=== PATIENT | female | born 1965 | race Caucasian/White ===

== ENCOUNTER 2016-07-10 08:36 | Day surgery (SDC) | payer BC, OTHER ==
[~2016-07-10] VITALS: Ht 168.9 cm; Wt 72.0 kg
[2016-07-10] MEDS ORDERED: LACTATED RINGERS 1,000 ML IV SCH (09:05)
[2016-07-10 09:30] VITALS: BP 165/116
[2016-07-10] MEDS ORDERED: NONE PER PT (09:39)
[2016-07-10] MEDS ORDERED: HEPARIN 1,000 UNITS/ML, 10ML ONE (09:43)
[2016-07-10] MEDS ORDERED: BUPIVACAINE/PF-EPI 0.5% 1:200K ONE (09:44)
[2016-07-10] MEDS ORDERED: MIDAZOLAM 1 MG/ML, 2ML ONE (09:55)
[2016-07-10] MEDS ORDERED: FENTANYL PF 100 MCG/2ML ONE ×3 (09:55→11:31)
[2016-07-10] MEDS ORDERED: ALBUTEROL SULFATE 2.5 MG/3 ML NPPB PRN (10:00)
[2016-07-10] MEDS ORDERED: MEPERIDINE/PF 25MG/0.5ML IVPush PRN ×2 (10:00→10:30)
[2016-07-10] MEDS ORDERED: FENTANYL PF 100 MCG/2ML IV PRN ×2 (10:00→10:30)
[2016-07-10] MEDS ORDERED: hydrALAzine 20 MG/ML, 1ML IV PRN ×2 (10:00→10:30)
[2016-07-10] MEDS ORDERED: LABETALOL 5MG/ML, 20ML IV PRN ×2 (10:00→10:30)
[2016-07-10] MEDS ORDERED: PROMETHAZINE 25 MG/ML, 1ML IV PRN ×2 (10:00→10:30)
[2016-07-10] MEDS ORDERED: ONDANSETRON 2MG/ML, 2ML IVPush PRN ×2 (10:00→10:30)
[2016-07-10] MEDS ORDERED: METOPROLOL 1 MG/ML, 5ML IV PRN (10:00)
[2016-07-10] MEDS ORDERED: EPHEDRINE 50 MG/ML, 1ML IVPush PRN (10:00)
[2016-07-10] MEDS ORDERED: OXYcodone 5 MG/5 ML ORAL.SOL UDC PO PRN ×2 (10:00→10:30)
[2016-07-10] MEDS ORDERED: ACETAMINOPHEN 325 MG TABLET PO PRN (10:00)
[2016-07-10] MEDS ORDERED: DEXAMETHASONE 4 MG/ML, 1ML ONE (10:24)
[2016-07-10] MEDS ORDERED: NEOSTIGMINE 1 MG/ML, 10ML ONE (10:24)
[2016-07-10] MEDS ORDERED: CEFAZOLIN 1,000 MG ONE (10:24)
[2016-07-10] MEDS ORDERED: LIDOCAINE 1%, 20ML ONE (10:24)
[2016-07-10] MEDS ORDERED: ONDANSETRON 2MG/ML, 2ML ONE (10:24)
[2016-07-10] MEDS ORDERED: PROPOFOL 10 MG/ML, 20ML ONE (10:24)
[2016-07-10] MEDS ORDERED: MIDAZOLAM 1 MG/ML, 2ML IV PRN (10:30)
[2016-07-10] MEDS ORDERED: HYDROmorphone 1 MG/ML, 1ML IV PRN (10:30)
[2016-07-10] MEDS ORDERED: OXYcodone 5 MG/5 ML ORAL.SOL UDC ONE (11:31)
[2016-07-10] MEDS ORDERED: ACETAMINOPHEN 325 MG TABLET ONE (11:31)
== END 2016-07-10 13:25 | disposition home or self-care (01) ==
LOC: OUT 08:36
PROVIDERS: ATTEND Surgery
DX: C50.411 Malignant neoplasm of upper-outer quadrant of right female breast (principal); Z72.89 Other problems related to lifestyle
CPT/HCPCS: 36561; 77001; C1788; J0690; J1100; J1644; J2405; J2704; J2710; J3010; J3490; J7120; J2250

== ENCOUNTER 2019-10-29 09:17 | Outpatient (CLI) | payer BC, OTHER ==
[~2019-10-29 09:17] MED LIST: NONE PER PT
[2019-10-29 10:09] LABS: BASOPHILS # (AUTO) 0.04 x10^3/uL (0-0.1); BASOPHILS % (AUTO) 1 % (0-1); EOSINOPHILS # (AUTO) 0.17 x10^3/uL (0-0.4); EOSINOPHILS % (AUTO) 4 % (1-7); LYMPHOCYTES % (AUTO) 41 % (22-44); MD NO; MEAN CORPUSCULAR HEMOGLOBIN 30.6 pg (27.0-34.8); MEAN CORPUSCULAR HGB CONC 33.1 g/dL (32.4-35.8); MEAN PLATELET VOLUME 8.6 fL (7.4-10.4); MONOCYTES # (AUTO) 0.52 x10^3/uL (0.2-0.8); MONOCYTES % (AUTO) 12 % (2-9); NEUTROPHILS # (AUTO) 1.88 x10^3/uL (1.8-6.8); NEUTROPHILS % (AUTO) 43 % (42-75); PLATELET COUNT 235 x10^3/uL (130-400); RED BLOOD COUNT 4.64 x10^6/uL (3.82-5.3); RED CELL DISTRIBUTION WIDTH 13.3 % (9.6-15.2)
[2019-10-29 10:22] LABS: ALBUMIN 4.3 g/dL (3.4-5.0); ANION GAP 3 mmol/L (5-15); CALCIUM 9.4 mg/dL (8.5-10.1); CHLORIDE 110 mmol/L (98-107)
[2019-10-29 10:25] LABS: ALANINE AMINOTRANSFERASE 30 U/L (12-78); ALKALINE PHOSPHATASE 75 U/L (45-117); BILIRUBIN,TOTAL 0.5 mg/dL (0.2-1.0); CREATININE 0.84 mg/dL (0.55-1.02); TOTAL PROTEIN 7.9 g/dL (6.4-8.2)
== END 2019-10-29 23:59 | disposition home or self-care (01) ==
LOC: STAR 09:17
PROVIDERS: ATTEND Specialist
DX: Z01.818 Encounter for other preprocedural examination (principal); C50.912 Malignant neoplasm of unspecified site of left female breast; C50.911 Malignant neoplasm of unspecified site of right female breast
CPT/HCPCS: 36415; 80053; 85025; 87635

== ENCOUNTER 2019-11-03 13:26 | Day surgery (SDC) | payer BC ==
[~2019-11-03] VITALS: Ht 167.6 cm; Wt 66.1 kg
[2019-11-03] MEDS ORDERED: LACTATED RINGERS 1,000 ML IV SCH ×2 (13:38→19:00)
[2019-11-03 13:42] VITALS: BP 155/106
[2019-11-03] MEDS ORDERED: CHLORHEXIDINE 15 ML UDC ONE (13:51)
[2019-11-03] MEDS ORDERED: ACETAMINOPHEN 500 MG TABLET ONE (13:52)
[2019-11-03] MEDS ORDERED: SCOPOLAMINE 1MG PATCH TD ONE (13:52)
[2019-11-03] MEDS ORDERED: GABAPENTIN 300 MG CAPSULE ONE (13:52)
[2019-11-03] MEDS ORDERED: GABAPENTIN 300 MG CAPSULE PO ONE (14:00)
[2019-11-03] MEDS ORDERED: SCOPOLAMINE 1MG PATCH TD SCH (14:00)
[2019-11-03] MEDS ORDERED: ACETAMINOPHEN 500 MG TABLET PO ONE (14:00)
[2019-11-03] MEDS ORDERED: CHLORHEXIDINE 15 ML UDC MM ONE (14:00)
[2019-11-03] MEDS ORDERED: ONDANSETRON 2MG/ML, 2ML ONE (14:14)
[2019-11-03] MEDS ORDERED: MIDAZOLAM 1 MG/ML, 2ML ONE (14:14)
[2019-11-03] MEDS ORDERED: GLYCOPYRROLATE 0.2MG/1ML, 5ML ONE (14:14)
[2019-11-03] MEDS ORDERED: NEOSTIGMINE 1 MG/ML, 10ML ONE (14:14)
[2019-11-03] MEDS ORDERED: PROPOFOL 10 MG/ML, 20ML ONE (14:14)
[2019-11-03] MEDS ORDERED: DEXAMETHASONE 4 MG/ML, 1ML ONE (14:14)
[2019-11-03] MEDS ORDERED: FENTANYL PF 250 MCG/5ML ONE (14:14)
[2019-11-03] MEDS ORDERED: ROCURONIUM 10MG/ML,5ML ONE (14:14)
[2019-11-03] MEDS ORDERED: CEFAZOLIN 1,000 MG ONE (14:14)
[2019-11-03] MEDS ORDERED: BUPIVACAINE/EPI 0.5% 1:200K ONE (14:46)
[2019-11-03] MEDS ORDERED: BACITRACIN 50,000 UNIT ONE (14:46)
[2019-11-03] MEDS ORDERED: LABETALOL 5MG/ML, 20ML IV PRN (15:00)
[2019-11-03] MEDS ORDERED: OXYcodone 5 MG/5 ML ORAL.SOL UDC PO PRN (15:00)
[2019-11-03] MEDS ORDERED: HYDROcodone/APAP 7.5-325MG/15ML UDC PO PRN (15:00)
[2019-11-03] MEDS ORDERED: FENTANYL PF 100 MCG/2ML IV PRN (15:00)
[2019-11-03] MEDS ORDERED: HYDROmorphone 1 MG/ML, 1ML INJ IVPush PRN (15:00)
[2019-11-03] MEDS ORDERED: hydrALAzine 20 MG/ML, 1ML IV PRN (15:00)
[2019-11-03] MEDS ORDERED: morphine SULFATE 10 MG/ML, 1ML IVPush PRN (15:00)
[2019-11-03] MEDS ORDERED: HALOPERIDOL 5 MG/ML IV PRN (15:00)
[2019-11-03] MEDS ORDERED: PROMETHAZINE 25 MG/ML, 1ML IVPush PRN (15:00)
[2019-11-03] MEDS ORDERED: MEPERIDINE/PF 25MG/0.5ML IVPush PRN (15:00)
[2019-11-03] MEDS ORDERED: PHENYLEPHRINE 10 MG/ML ONE (15:01)
[2019-11-03] MEDS ORDERED: TRANEXAMIC ACID 100 MG/ML, 10ML ONE (15:07)
[2019-11-03] MEDS ORDERED: hydrALAzine 20 MG/ML, 1ML ONE (15:22)
[2019-11-03] MEDS ORDERED: METOPROLOL 1 MG/ML, 5ML ONE (15:25)
[2019-11-03] MEDS ORDERED: FENTANYL PF 100 MCG/2ML ONE (16:07)
[2019-11-03] MEDS ORDERED: MEPERIDINE/PF 25MG/ML,1ML ONE (17:07)
[2019-11-03] MEDS ORDERED: ONDANSETRON 2MG/ML, 2ML IVPush PRN (19:00)
[2019-11-03] MEDS ORDERED: MORPHINE SULFATE 4 MG/ML, 1ML IVPush PRN (19:00)
== END 2019-11-03 22:10 | disposition home or self-care (01) ==
LOC: OUT 13:26 → 4NE 18:21 → OUT 22:10
PROVIDERS: ATTEND Specialist
DX: T85.41XA Breakdown (mechanical) of breast prosthesis and implant, initial encounter (principal); T85.44XA Capsular contracture of breast implant, initial encounter; N65.1 Disproportion of reconstructed breast; Z85.3 Personal history of malignant neoplasm of breast; Z90.13 Acquired absence of bilateral breasts and nipples; Y83.8 Other surgical procedures as the cause of abnormal reaction of the patient, or of later complication, without mention of misadventure at the time of the procedure
CPT/HCPCS: 19357; 19371; C1729; C1789; J0360; J0690; J1100; J2175; J2250; J2370; J2405; J2704; J2710; J3010; J7120; 36415; 87635; G0378

== ENCOUNTER → 2019-12-31 | Outpatient (CLI) | payer BC | END | disposition home or self-care (01) | LOC: WOUND 09:23 | PROVIDERS: ATTEND Family Medicine | DX: T81.31XA Disruption of external operation (surgical) wound, not elsewhere classified, initial encounter (principal); Z42.1 Encounter for breast reconstruction following mastectomy; Z87.891 Personal history of nicotine dependence; Z85.3 Personal history of malignant neoplasm of breast; Y92.238 Other place in hospital as the place of occurrence of the external cause; Y83.8 Other surgical procedures as the cause of abnormal reaction of the patient, or of later complication, without mention of misadventure at the time of the procedure | CPT/HCPCS: 99214 ==

== ENCOUNTER → 2020-01-07 | Outpatient (CLI) | payer BC | END | disposition home or self-care (01) | LOC: WOUND 09:04 | PROVIDERS: ATTEND Family Medicine | DX: T81.31XD Disruption of external operation (surgical) wound, not elsewhere classified, subsequent encounter (principal); Z85.3 Personal history of malignant neoplasm of breast; Z87.891 Personal history of nicotine dependence; Y83.8 Other surgical procedures as the cause of abnormal reaction of the patient, or of later complication, without mention of misadventure at the time of the procedure | CPT/HCPCS: 97605 ==

== ENCOUNTER → 2020-01-14 | Outpatient (CLI) | payer BC | END | disposition home or self-care (01) | LOC: WOUND 09:48 | PROVIDERS: ATTEND Family Medicine | DX: T81.31XD Disruption of external operation (surgical) wound, not elsewhere classified, subsequent encounter (principal); Z85.3 Personal history of malignant neoplasm of breast; Z87.891 Personal history of nicotine dependence; Y83.8 Other surgical procedures as the cause of abnormal reaction of the patient, or of later complication, without mention of misadventure at the time of the procedure | CPT/HCPCS: 97597 ==

== ENCOUNTER 2020-01-21 10:38 | Outpatient (CLI) | payer BC | END 2020-01-21 23:59 | disposition home or self-care (01) | LOC: WOUND 10:38 | PROVIDERS: ATTEND Family Medicine | DX: T81.31XD Disruption of external operation (surgical) wound, not elsewhere classified, subsequent encounter (principal); Z85.3 Personal history of malignant neoplasm of breast; Z87.891 Personal history of nicotine dependence; Y83.8 Other surgical procedures as the cause of abnormal reaction of the patient, or of later complication, without mention of misadventure at the time of the procedure | CPT/HCPCS: 11042 ==

== ENCOUNTER → 2020-01-28 | Outpatient (CLI) | payer BC | END | disposition home or self-care (01) | LOC: WOUND 13:05 | PROVIDERS: ATTEND Family Medicine | DX: T81.31XD Disruption of external operation (surgical) wound, not elsewhere classified, subsequent encounter (principal); Z85.3 Personal history of malignant neoplasm of breast; Z87.891 Personal history of nicotine dependence; Y83.8 Other surgical procedures as the cause of abnormal reaction of the patient, or of later complication, without mention of misadventure at the time of the procedure | CPT/HCPCS: 99213 ==

== ENCOUNTER → 2020-02-04 | Outpatient (CLI) | payer BC | END | disposition home or self-care (01) | LOC: WOUND 12:57 | PROVIDERS: ATTEND Family Medicine | DX: T81.31XD Disruption of external operation (surgical) wound, not elsewhere classified, subsequent encounter (principal); Z85.3 Personal history of malignant neoplasm of breast; Z87.891 Personal history of nicotine dependence; Y83.8 Other surgical procedures as the cause of abnormal reaction of the patient, or of later complication, without mention of misadventure at the time of the procedure | CPT/HCPCS: 99213 ==

== ENCOUNTER → 2020-02-11 | Outpatient (CLI) | payer BC | END | disposition home or self-care (01) | LOC: WOUND 13:30 | PROVIDERS: ATTEND Family Medicine | DX: T81.31XD Disruption of external operation (surgical) wound, not elsewhere classified, subsequent encounter (principal); Z85.3 Personal history of malignant neoplasm of breast; Z87.891 Personal history of nicotine dependence; Y83.8 Other surgical procedures as the cause of abnormal reaction of the patient, or of later complication, without mention of misadventure at the time of the procedure | CPT/HCPCS: 99213 ==

== ENCOUNTER → 2020-03-10 | Outpatient (CLI) | payer BC | END | disposition home or self-care (01) | LOC: WOUND 14:05 | PROVIDERS: ATTEND Internal Medicine | DX: T81.31XD Disruption of external operation (surgical) wound, not elsewhere classified, subsequent encounter (principal); Z85.3 Personal history of malignant neoplasm of breast; Z87.891 Personal history of nicotine dependence; Z42.1 Encounter for breast reconstruction following mastectomy; Y83.8 Other surgical procedures as the cause of abnormal reaction of the patient, or of later complication, without mention of misadventure at the time of the procedure | CPT/HCPCS: 97597 ==

== ENCOUNTER → 2020-03-24 | Outpatient (CLI) | payer BC | END | disposition home or self-care (01) | LOC: WOUND 10:09 | PROVIDERS: ATTEND Internal Medicine | DX: T81.31XD Disruption of external operation (surgical) wound, not elsewhere classified, subsequent encounter (principal); Z85.3 Personal history of malignant neoplasm of breast; Z87.891 Personal history of nicotine dependence; Z42.1 Encounter for breast reconstruction following mastectomy; Y83.8 Other surgical procedures as the cause of abnormal reaction of the patient, or of later complication, without mention of misadventure at the time of the procedure | CPT/HCPCS: C5271; Q4118 ==

== ENCOUNTER → 2020-04-19 | Outpatient (CLI) | payer BC | END | disposition home or self-care (01) | LOC: WOUND 09:11 | PROVIDERS: ATTEND Internal Medicine | DX: T81.31XD Disruption of external operation (surgical) wound, not elsewhere classified, subsequent encounter (principal); Z85.3 Personal history of malignant neoplasm of breast; Z87.891 Personal history of nicotine dependence; Z42.1 Encounter for breast reconstruction following mastectomy; Y83.8 Other surgical procedures as the cause of abnormal reaction of the patient, or of later complication, without mention of misadventure at the time of the procedure | CPT/HCPCS: 97597 ==

== ENCOUNTER → 2020-05-03 | Outpatient (CLI) | payer BC | END | disposition home or self-care (01) | LOC: WOUND 12:52 | PROVIDERS: ATTEND Internal Medicine | DX: T81.31XD Disruption of external operation (surgical) wound, not elsewhere classified, subsequent encounter (principal); Z85.3 Personal history of malignant neoplasm of breast; Z87.891 Personal history of nicotine dependence; Z42.1 Encounter for breast reconstruction following mastectomy; Y83.8 Other surgical procedures as the cause of abnormal reaction of the patient, or of later complication, without mention of misadventure at the time of the procedure | CPT/HCPCS: 97597 ==